=== PATIENT | female | born 1965 | race Caucasian/White ===

== ENCOUNTER 2016-09-07 08:22 | Emergency (ER) | payer MEDICAID, OTHER ==
[~2016-09-07] VITALS: Ht 149.9 cm; Wt 40.0 kg
[~2016-09-07 08:22] MED LIST: CEPH500C3 PO
[2016-09-07 08:25] VITALS: BP 166/76; PULSE 124; RESP 22; TEMP 98.1; O2SAT 95
[2016-09-07 09:27] LABS: BACTERIA, URINE RARE /hpf; BLOOD, URINE MOD (NEG); COMMENT (UR) CULT NOT INDICATED; CULTURE IF INDICATED CULT NOT INDICATED; GLUCOSE,URINE NEG (NEG); KETONE, URINE 80 mg/dL (NEG); MUCUS URINE MANY /lpf (OCC); NITRITE,URINE NEG (NEG); URINE COLOR YELLOW (YELLW/STRAW)
--- NOTE | 2016-09-07 10:00 | RADRPT ---
EXAM DATE/TIME: 09/07/2016 09:36 [facility] COMPARISON: No previous studies available for comparison. INDICATIONS : Abdominal pain. Constipation and impaction for one week. MEDICAL HISTORY : None. SURGICAL HISTORY : Tubal ligation. ENCOUNTER: Initial ACUITY: 1 week PAIN SCORE: 8/10 LOCATION: All quadrants. FINDINGS: A single erect view of the abdomen demonstrates the lower lungs to be clear. No evidence of free int raperitoneal gas. The visualized bowel loops are unremarkable. There is some stool in the colon. How ever no abnormal dilatation is seen. There is some curvature of the lumbar spine to the right. CONCLUSION: Benign abdomen. Mickey Lima MD on September 07, 2016 at 9:58 Board Certified Radiologist. This report was verified electronically.
--- NOTE | 2016-09-07 10:46 | PD ---
HPI Chief Complaint: GI Complaint Time Seen by Provider: 08:41 Travel History International Travel<30 days: No Contact w/Intl Traveler<30days: No Traveled to known affect area: No History of Present Illness HPI This is a 51-year-old female history of anxiety disorder, who presents today with complaints of not been able to have a bowel movement 1 week. Patient states that she's had constipation in the past. She states that when he gets this bad, she usually needs disimpaction. The patient denies any fevers, chills. She states that she's having difficulty urinating secondary to the feeling that she has a large amount of stool in her colon. There are no other complaints time my examination. PFSH Past Medical History Arthritis: Yes Autoimmune Disease: No Blood Disorders: No Anxiety: Yes Depression: Yes Heart Rhythm Problems: No Cancer: No Cardiovascular Problems: Yes (HEART MURMUR) High Cholesterol: No Chemotherapy: No Chest Pain: No Congestive Heart Failure: No Diabetes: No Diminished Hearing: No Endocrine: No Gastrointestinal Disorders: Yes (MAY HAVE IBS. UNSURE.) GERD: No Glaucoma: No Genitourinary: No Headaches: Yes Hepatitis: No Hiatal Hernia: No Hypertension: No Immune Disorder: No Kidney Stones: No Musculoskeletal: Yes (INJURED ENTIRE R SIDE IN A FALL AT THE [employer] YEAR AND HALF AGO) Neurologic: No Psychiatric: Yes Reproductive: Yes Respiratory: No Migraines: No Myocardial Infarction: No Radiation Therapy: No Renal Failure: No Sickle Cell Disease: No Sleep Apnea: No Thyroid Disease: No Ulcer: No Influenza Vaccination: Yes ?: Not Menopausal: Yes : 9 Para: 2 Miscarriage: 1 : 5 Ectopic : No Ovarian Cysts: No Dilation and Curettage (D&C): Yes Tubal Ligation: Yes Past Surgical History Abdominal Surgery: No AICD: No Appendectomy: No Arteriovenous Shunt: No Cardiac Surgery: No Cholecystectomy: No Ear Surgery: No Endocrine Surgery: No Eye Surgery: No Genitourinary Surgery: No Gynecologic Surgery: Yes (CERVICAL ABLATION, D & C) Hysterectomy: No Insulin Pump: No Joint Replacement: No Oral Surgery: No Pacemaker: No Thoracic Surgery: No Other Surgery: Yes Social History Alcohol Use: No Tobacco Use: Yes (1 PPD) Substance Use: Yes (OCCASIONAL MARIJUANA) Allergies-Medications (Allergen,Severity, Reaction): Coded Allergies: Cleocin (Verified Allergy, Severe, 2/24/17) Flagyl (Verified Allergy, Severe, NAUSEA/VOMITING, 09/07/16) Tetracycline (Verified Allergy, Severe, 09/07/16) Tramadol (Verified Allergy, Severe, CONFUSED, 09/07/16) Reported Meds & Prescriptions Reported Meds & Active Scripts Active No Active Prescriptions or Reported Medications Review of Systems Except as stated in HPI: all other systems reviewed are Neg General / Constitutional: No: Fever, Chills HENT: No: Headaches, Lightheadedness Cardiovascular: No: Chest Pain or Discomfort, Palpitations Respiratory: No: Cough, Shortness of Breath Gastrointestinal: Positive: Abdominal Pain (abdominal discomfort), Constipation ( secondary to constipation), No: Nausea, Vomiting Genitourinary: Positive: Other (difficulty urinating secondary to the constipation) Neurologic: No: Weakness, Dizziness Psychiatric: Positive: Anxiety (history of) Physical Exam Narrative GENERAL: Well-nourished, well-developed patient, in no acute respiratory distress. SKIN: Warm and dry. HEAD: Normocephalic/atraumatic. EYES: No injection or drainage. NECK: Supple, trachea midline. CARDIOVASCULAR: Irregularly irregular with a rate in the low 100s. Rate was 101 RESPIRATORY: Breath sounds equal bilaterally. No accessory muscle use. GASTROINTESTINAL: Abdomen soft, thin. The patient had subjective cramping in her lower abdominal area with the urge to have a bowel movement. MUSCULOSKELETAL: No cyanosis, or edema. NEUROLOGICAL: Awake and alert. Cranial nerves II through XII intact. Motor grossly within normal limits. Five out of 5 muscle strength in all muscle groups. Normal speech. Data Data Last Documented VS Vital Signs Date Time Temp Pulse Resp B/P Pulse Ox O2 Delivery O2 Flow Rate FiO2 09/07/16 08:25 98.1 124 22 166/76 95 Orders Electrocardiogram (09/07/16 ) Urinalysis - C+S If Indicated (09/07/16 08:41) Abdomen, Upright Only (09/07/16 08:41) Complete Blood Count With Diff (09/07/16 10:43) Basic Metabolic Panel (Bmp) (09/07/16 10:43) Midazolam Inj (Versed Inj) (09/07/16 12:15) Fleets Enema PRN (09/07/16 12:14) Potassium Cl 40 Meq/30 Ml Liq (Kcl 40 Me (09/07/16 15:00) Labs Laboratory Tests Test 09/07/16 09/07/16 09:05 10:30 Urine Color YELLOW Urine Turbidity HAZY Urine pH 6.0 Urine Specific [place] 1.013 Urine Protein 100 mg/dL Urine Glucose (UA) NEG mg/dL Urine Ketones 80 mg/dL Urine Occult Blood MOD Urine Nitrite NEG Urine Bilirubin NEG Urine Urobilinogen 2.0 MG/DL Urine Leukocyte Esterase NEG Urine RBC 42 /hpf Urine WBC 4 /hpf Urine Bacteria RARE /hpf Urine Mucus MANY /lpf Microscopic Urinalysis Comment CULT NOT INDICATED White Blood Count 9.6 TH/MM3 Red Blood Count 4.79 MIL/MM3 Hemoglobin 14.0 GM/DL Hematocrit 40.1 % Mean Corpuscular Volume 83.6 FL Mean Corpuscular Hemoglobin 29.1 PG Mean Corpuscular Hemoglobin 34.8 % Concent Red Cell Distribution Width 13.8 % Platelet Count 359 TH/MM3 Mean Platelet Volume 8.0 FL Neutrophils (%) (Auto) 86.0 % Lymphocytes (%) (Auto) 7.1 % Monocytes (%) (Auto) 6.3 % Eosinophils (%) (Auto) 0.1 % Basophils (%) (Auto) 0.5 % Neutrophils # (Auto) 8.3 TH/MM3 Lymphocytes # (Auto) 0.7 TH/MM3 Monocytes # (Auto) 0.6 TH/MM3 Eosinophils # (Auto) 0.0 TH/MM3 Basophils # (Auto) 0.0 TH/MM3 CBC Comment DIFF FINAL Differential Comment Sodium Level 135 MEQ/L Potassium Level 2.9 MEQ/L Chloride Level 97 MEQ/L Carbon Dioxide Level 26.8 MEQ/L Anion Gap 11 MEQ/L Blood Urea Nitrogen 11 MG/DL Creatinine 0.44 MG/DL Estimat Glomerular Filtration 151 ML/MIN Rate Random Glucose 146 MG/DL Calcium Level 8.6 MG/DL [facility] Medical Decision Making Medical Screen Exam Complete: Yes Emergency Medical Condition: Yes Interpretation(s) With nurse Mcmanus at the bedside, the patient was digitally disimpacted. A large amount of hard stool was digitally removed from the patient's rectum. She tolerated the procedure well. Differential Diagnosis Bowel obstruction versus constipation versus dehydration Narrative Course 51-year-old female history chronic constipation, presents with complaints of constipation. The patient states that she needs to be disimpacted. The patient did not have evidence of a bowel obstruction. This physician did disimpact her partially. We also gave her a fleets enema which was successful for getting her bowels moving. She states she feels much improved. She has been given I V fluids as her urine was dark. Her potassium was also noted to be 2.9. She's been given 40 mEq of potassium times one dose. She states she always has low potassium. I will write her for 10 mEq daily for 10 days. She is instructed also increase her potassium rich diet including warm juice, bananas and green leafy vegetables. She is instructed to follow up with her primary care physician. Also instructed that she needs to stop smoking cigarettes. Diagnosis Primary Impression: severe constipation Additional Impressions: Dehydration HYPOKALEMIA Additional Instructions: Increase potassium rich foods including orange juice, bananas, green leafy few vegetables. Increase her water intake. Take 10 mEq of potassium daily for 10 days. Follow up with primary care physician within one to 2 weeks. Scripts Potassium Chloride ER (K-Tab)10 Meq Tab10 Meq PO DAILY #10 TAB Ref 0 Prov:Forest Yarbrough MD 09/07/16 Disposition: 01 DISCHARGE HOME Condition: Stable Forest Yarbrough MD Sep 07, 2016 10:46
[2016-09-07 11:02] LABS: AUTOMATED NEUTROPHIL # 8.3 TH/MM3 (1.8-7.7); BASOPHIL % 0.5 % (0.0-2.0); EOSINOPHIL % 0.1 % (0.0-4.0); HEMATOCRIT 40.1 % (35.0-46.0); HEMO FLAGS DIFF FINAL; LYMPH % 7.1 % (9.0-44.0); LYMPHOCYTE # 0.7 TH/MM3 (1.0-4.8); MEAN CELL VOLUME 83.6 FL (80.0-100.0); MEAN CORPUSCULAR HEMOGLOBIN 29.1 PG (27.0-34.0); MEAN CORPUSCULAR HGB CONC 34.8 % (32.0-36.0); MONO % 6.3 % (0.0-8.0); PLATELET COUNT 359 TH/MM3 (150-450); RED BLOOD COUNT 4.79 MIL/MM3 (4.00-5.30); RED CELL DISTRIBUTION WIDTH 13.8 % (11.6-17.2); WHITE BLOOD COUNT 9.6 TH/MM3 (4.0-11.0)
[2016-09-07 12:07] LABS: BICARBONATE 26.8 MEQ/L (21.0-32.0)
[2016-09-07 12:13] LABS: POTASSIUM 2.9 MEQ/L (3.5-5.1)
[2016-09-07] MEDS ORDERED: MIDAZOLAM HCL 2 MG/2 ML VIAL IV PUSH ONE (12:15)
[2016-09-07] MEDS ORDERED: POTASSIUM CL 40 MEQ/30 ML LIQ UDC PO ONE (15:00)
[2016-09-07] MEDS ORDERED: K-TA10TA PO (15:08)
[2016-09-07 16:31] VITALS: BP 116/60
--- NOTE | 2016-09-07 17:15 | EKG ---
Date Performed: 09/07/2016 Time Performed: 08:47:42 PTAGE: 51 years EKG: SINUS TACHYCARDIA POSSIBLE RIGHT ATRIAL ENLARGEMENT MODERATE ST DEPRESSION ABNORMAL ECG NO PREVIOUS TRACING DOCTOR: Nila Menezes Interpretating Date/Time 09/07/2016 17:14:25
== END 2016-09-07 17:21 | disposition home or self-care (01) ==
LOC: NEPE 08:22
DX: K56.41 Fecal impaction (principal); E86.0 Dehydration; E87.6 Hypokalemia; F17.210 Nicotine dependence, cigarettes, uncomplicated
CPT/HCPCS: 74000; 80048; 81001; 85025; 93005; 96374; 99284; J2250

== ENCOUNTER 2017-03-04 15:40 | Emergency (ER) | payer SELFPAY ==
[~2017-03-04] VITALS: Ht 149.9 cm; Wt 40.0 kg
[~2017-03-04 15:40] MED LIST changes: -CEPH500C3 PO; +K-TA10TA PO
[2017-03-04] MEDS ORDERED: IOHEXOL 350 MG/ML 10 ML VIAL (for RAD DIAG) IVCONTRAST ONE (15:41)
[2017-03-04 15:42] VITALS: BP 184/83; PULSE 99; RESP 26; TEMP 98.8; O2SAT 98
--- NOTE | 2017-03-04 17:15 | PD ---
Physical Exam Date Seen by Provider: Mar 04, 2017 Time Seen by Provider: 17:13 Narrative 51 y/o female here with Abd Pain and cramping for the past 6 days. + Diarrhea. + Nausea, No vomiting. Labs ordered. Data Data Last Documented VS Vital Signs Date Time Temp Pulse Resp B/P (MAP) Pulse Ox O2 Delivery O2 Flow Rate FiO2 03/04/17 15:42 98.8 99 26 184/83 (116) 98 Room Air MDM Medical Record Reviewed: Yes Supervised Visit with MUNIR: Yes Condition: Stable Tai Barros Mar 04, 2017 17:15
[2017-03-04 17:44] LABS: BLOOD, URINE SMALL (NEG); COMMENT (UR) CULT NOT INDICATED; CULTURE IF INDICATED CULT NOT INDICATED; GLUCOSE,URINE NEG (NEG); KETONE, URINE NEG (NEG); MUCUS URINE FEW /lpf (OCC); NITRITE,URINE NEG (NEG); PH, URINE 6.5 (5.0-8.5); SQUAMOUS EPITHELIAL CELL URINE 1 /hpf (0-5); URINE COLOR YELLOW (YELLW/STRAW)
[2017-03-04 17:56] LABS: AUTOMATED NEUTROPHIL # 3.4 TH/MM3 (1.8-7.7); BASOPHIL % 0.5 % (0.0-2.0); EOSINOPHIL # 0.1 TH/MM3 (0-0.4); HEMATOCRIT 43.9 % (35.0-46.0); HEMO FLAGS DIFF FINAL; LYMPH % 43.2 % (9.0-44.0); MEAN CELL VOLUME 86.7 FL (80.0-100.0); MEAN CORPUSCULAR HEMOGLOBIN 29.5 PG (27.0-34.0); MONO % 6.6 % (0.0-8.0); NEUT % 48.7 % (16.0-70.0); PLATELET COUNT 296 TH/MM3 (150-450); RED BLOOD COUNT 5.06 MIL/MM3 (4.00-5.30); RED CELL DISTRIBUTION WIDTH 13.4 % (11.6-17.2); WHITE BLOOD COUNT 6.9 TH/MM3 (4.0-11.0)
[2017-03-04 18:01] LABS: APTT (PATIENT) 26.9 SEC (24.3-30.1); PROTHROMBIN TIME - PATIENT 10.7 SEC (9.8-11.6)
[2017-03-04 18:06] LABS: ALT (GPT) 19 U/L (10-53); ANION GAP 7 MEQ/L (5-15); AST (GOT) 17 U/L (15-37); BICARBONATE 30.3 MEQ/L (21.0-32.0); BLOOD UREA NITROGEN 12 MG/DL (7-18); CHLORIDE 102 MEQ/L (98-107); GLOMERULAR FILTRATION RATE 196 ML/MIN (>89); POTASSIUM 3.4 MEQ/L (3.5-5.1); SODIUM (NA) 139 MEQ/L (136-145)
[2017-03-04 18:08] LABS: ALKALINE PHOSPHATASE 118 U/L (45-117); TOTAL BILIRUBIN ADULT 0.5 MG/DL (0.2-1.0)
[2017-03-04] MEDS ORDERED: SODIUM CHLOR 0.9% 1000 ML INJ 1,000 ML IV SCH (19:20)
--- NOTE | 2017-03-04 19:26 | PD ---
HPI Chief Complaint: Abdominal Pain Time Seen by Provider: 18:52 Travel History International Travel<30 days: No Contact w/Intl Traveler<30days: No Traveled to known affect area: No History of Present Illness HPI Patient is a 51-year-old female presenting to emergency evaluation of abdominal pain and cramping. Patient states it's been ongoing for approximately 6 days, accompanied by diarrhea and nausea but no vomiting. Patient states that she's been burping and as a throbbing pain in her stomach. She states the pain was in her right upper quadrant and then moved to her left upper quadrant and then goes back again. Patient states the pain takes her breath away sometimes. She has had pain similar to this in the past however at this time is more severe. She currently rates her pain a 9 out of 10, the pain is exacerbated with food, is not relieved by anything. She denies any significant past medical history, she endorses daily tobacco use but denies alcohol use. She further denies any fever, chills, chest pain, headache, neck pain. PFSH Past Medical History Medical History: Denies Significant Hx Arthritis: Yes Autoimmune Disease: No Blood Disorders: No Anxiety: Yes Depression: Yes Heart Rhythm Problems: No Cancer: No High Cholesterol: No Chemotherapy: No Chest Pain: No Congestive Heart Failure: No Diabetes: No Diminished Hearing: No Endocrine: No Gastrointestinal Disorders: Yes GERD: No Glaucoma: No Genitourinary: No Headaches: Yes Hepatitis: No Hiatal Hernia: No Hypertension: No Immune Disorder: No Kidney Stones: No Musculoskeletal: Yes (INJURED ENTIRE R SIDE IN A FALL AT THE [employer] [facility] YEAR AND HALF AGO) Neurologic: No Psychiatric: Yes Reproductive: Yes Respiratory: No Migraines: No Myocardial Infarction: No Radiation Therapy: No Renal Failure: No Sickle Cell Disease: No Sleep Apnea: No Thyroid Disease: No Ulcer: No Tetanus Vaccination: < 5 Years Influenza Vaccination: No ?: Not LMP: Menopausal: Yes : 9 Para: 3 Miscarriage: 1 : 5 Ectopic : No Ovarian Cysts: No Dilation and Curettage (D&C): Yes Tubal Ligation: Yes Past Surgical History Abdominal Surgery: No AICD: No Appendectomy: No Arteriovenous Shunt: No Cardiac Surgery: No Cholecystectomy: No Ear Surgery: No Endocrine Surgery: No Eye Surgery: No Genitourinary Surgery: No Gynecologic Surgery: Yes (December 2007 Ablation) Hysterectomy: No Insulin Pump: No Joint Replacement: No Oral Surgery: No Pacemaker: No Thoracic Surgery: No Other Surgery: Yes Social History Alcohol Use: No Tobacco Use: Yes (one pack) Substance Use: Yes (pot) Allergies-Medications (Allergen,Severity, Reaction): Coded Allergies: clindamycin (Unverified Allergy, Severe, 03/04/17) doxycycline (Unverified Allergy, Severe, 03/04/17) metronidazole (Unverified Allergy, Severe, NAUSEA/VOMITING, 03/04/17) minocycline (Unverified Allergy, Severe, 03/04/17) tigecycline (Unverified Allergy, Severe, 03/04/17) tramadol (Unverified Allergy, Severe, CONFUSED, 03/04/17) Reported Meds & Prescriptions Reported Meds & Active Scripts Active Review of Systems Except as stated in HPI: all other systems reviewed are Neg General / Constitutional: No: Fever, Chills Eyes: No: Blurred Vision HENT: No: Headaches Cardiovascular: No: Chest Pain or Discomfort Respiratory: No: Shortness of Breath Gastrointestinal: Positive: Nausea, Diarrhea, Abdominal Pain, Indigestion, No: Vomiting Genitourinary: No: Dysuria Musculoskeletal: No: Myalgias Neurologic: No: Weakness Physical Exam Narrative GENERAL: Thin, well-developed, alert female. Resting in no acute distress. SKIN: Warm and dry. HEAD: Atraumatic. Normocephalic. EYES: Pupils equal and round. No scleral icterus. No injection or drainage. ENT: No nasal bleeding or discharge. Mucous membranes pink and moist. NECK: Trachea midline. No JVD. CARDIOVASCULAR: Regular rate and rhythm. RESPIRATORY: No accessory muscle use. Clear to auscultation. Breath sounds equal bilaterally. GASTROINTESTINAL: Abdomen soft, mild tenderness epigastric region, nondistended. Hepatic and splenic margins not palpable. Positive bowel sounds, no rebound, no guarding. MUSCULOSKELETAL: Extremities without clubbing, cyanosis, or edema. No obvious deformities. NEUROLOGICAL: Awake and alert. No obvious cranial nerve deficits. Motor grossly within normal limits. Five out of 5 muscle strength in the arms and legs. Normal speech. PSYCHIATRIC: Appropriate mood and affect; insight and judgment normal. Data Data Last Documented VS Vital Signs Date Time Temp Pulse Resp B/P (MAP) Pulse Ox O2 Delivery O2 Flow Rate FiO2 03/04/17 19:51 86 20 154/71 (98) 98 03/04/17 15:42 98.8 Room Air Orders Orders Complete Blood Count With Diff (03/04/17 17:15) Comprehensive Metabolic Panel (03/04/17 17:15) Lipase (03/04/17 17:15) Prothrombin Time / Inr (Pt) (03/04/17 17:15) Act Partial Throm Time (Ptt) (03/04/17 17:15) Urinalysis - C+S If Indicated (03/04/17 17:15) Ct Abd/Pel W Iv Contrast(Rout) (03/04/17 19:20) Iv Access Insert/Monitor (03/04/17 19:20) Ecg Monitoring (03/04/17 19:20) Oximetry (03/04/17 19:20) NPO (03/04/17 19:20) Ondansetron Inj (Zofran Inj) (03/04/17 19:30) Sodium Chlor 0.9% 1000 Ml Inj (Ns 1000 M (03/04/17 19:20) Sodium Chloride 0.9% Flush (Ns Flush) (03/04/17 19:30) Famotidine Inj (Pepcid Inj) (03/04/17 19:30) Iohexol 350 Inj (Omnipaque 350 Inj) (03/04/17 15:41) Labs Laboratory Tests Test 03/04/17 17:23 03/04/17 17:30 White Blood Count 6.9 TH/MM3 Red Blood Count 5.06 MIL/MM3 Hemoglobin 14.9 GM/DL Hematocrit 43.9 % Mean Corpuscular Volume 86.7 FL Mean Corpuscular Hemoglobin 29.5 PG Mean Corpuscular Hemoglobin Concent 34.0 % Red Cell Distribution Width 13.4 % Platelet Count 296 TH/MM3 Mean Platelet Volume 7.6 FL Neutrophils (%) (Auto) 48.7 % Lymphocytes (%) (Auto) 43.2 % Monocytes (%) (Auto) 6.6 % Eosinophils (%) (Auto) 1.0 % Basophils (%) (Auto) 0.5 % Neutrophils # (Auto) 3.4 TH/MM3 Lymphocytes # (Auto) 3.0 TH/MM3 Monocytes # (Auto) 0.5 TH/MM3 Eosinophils # (Auto) 0.1 TH/MM3 Basophils # (Auto) 0.0 TH/MM3 CBC Comment DIFF FINAL Differential Comment Prothrombin Time 10.7 SEC Prothromb Time International Ratio 1.0 RATIO Activated Partial Thromboplast Time 26.9 SEC Blood Urea Nitrogen 12 MG/DL Creatinine 0.35 MG/DL Random Glucose 77 MG/DL Total Protein 8.0 GM/DL Albumin 4.2 GM/DL Calcium Level 9.2 MG/DL Alkaline Phosphatase 118 U/L Aspartate Amino Transf (AST/SGOT) 17 U/L Alanine Aminotransferase (ALT/SGPT) 19 U/L Total Bilirubin 0.5 MG/DL Sodium Level 139 MEQ/L Potassium Level 3.4 MEQ/L Chloride Level 102 MEQ/L Carbon Dioxide Level 30.3 MEQ/L Anion Gap 7 MEQ/L Estimat Glomerular Filtration Rate 196 ML/MIN Lipase 76 U/L Urine Color YELLOW Urine Turbidity CLEAR Urine pH 6.5 Urine Specific [place] 1.014 Urine Protein 30 mg/dL Urine Glucose (UA) NEG mg/dL Urine Ketones NEG mg/dL Urine Occult Blood SMALL Urine Nitrite NEG Urine Bilirubin NEG Urine Urobilinogen LESS THAN 2.0 MG/DL Urine Leukocyte Esterase NEG Urine RBC 5 /hpf Urine WBC LESS THAN 1 /hpf Urine Squamous Epithelial Cells 1 /hpf Urine Amorphous Sediment RARE Urine Mucus FEW /lpf Microscopic Urinalysis Comment CULT NOT INDICATED MDM Medical Decision Making Medical Screen Exam Complete: Yes Emergency Medical Condition: Yes Medical Record Reviewed: Yes Interpretation(s) Vital Signs Date Time Temp Pulse Resp B/P (MAP) Pulse Ox O2 Delivery O2 Flow Rate FiO2 03/04/17 19:14 20 03/04/17 15:42 98.8 99 26 184/83 (116) 98 Room Air Differential Diagnosis Gastritis versus pancreatitis versus cholecystitis versus gastroenteritis versus other Narrative Course Patient is a 51-year-old female presenting for evaluation of upper abdominal pain that has been ongoing for 6 days. Patient's vital signs are stable, abdominal exam with mild tenderness in the epigastric region. Patient had labs performed in triage, patient's vital signs are stable, imaging ordered and pending. CBC is unremarkable CMP potassium 3.4, lipase 76 Urinalysis with 5 red blood cells, small amount of blood. Reflex culture is not indicated. Patient denies any complaints of dysuria CT scan abdomen and pelvis was read by the radiologist and shows no acute disease, no significant changes occurred. Patient was given Zofran, IV fluids, famotidine. She was also ordered a dose of Carafate. Symptoms appear more consistent with gastritis, patient will be discharged home with medications. She is encouraged to follow-up with her primary doctor. She was given strict return precautions. Patient verbalized understanding of these instructions. Patient is stable for discharge. Diagnosis Primary Impression: Gastritis Qualified Codes: K29.70 - Gastritis, unspecified, without bleeding Referrals: [facility] Primary Care Physician Patient Instructions: Diet for Stomach Ulcers and Gastritis (ED), Gastritis (ED ), General Instructions Additional Instructions: Follow-up with your primary doctor Maintain a bland, low residue diet, increase as tolerated Take medications as directed Return to emergency department for any new or worsening symptoms Med/Other Pt SpecificInfo: Prescription(s) given Scripts Pantoprazole (Pantoprazole) 40 Mg Tab 40 MG PO DAILY for Reflux, #30 TAB 0 Refills Prov: Parisa Villagomez 03/04/17 Sucralfate Liq (Carafate Liq) 1 Gm/10 Ml Susp 1 GM PO QID for Duodenal ulcer for 10 Days, #1200 ML 0 Refills on empty stomach Prov: Parisa Villagomez 03/04/17 Disposition: 01 DISCHARGE HOME Condition: Stable Parisa Villagomez Mar 04, 2017 19:26
[2017-03-04] MEDS ORDERED: ONDANSETRON HCL 4 MG/2 ML VIAL IVP ONE (19:30)
[2017-03-04] MEDS ORDERED: SODIUM CHLORIDE 0.9% FLUSH 10 ML FLUSH IV FLUSH PRN (19:30)
[2017-03-04] MEDS ORDERED: FAMOTIDINE 20 MG/2 ML VIAL IV PUSH ONE (19:30)
[2017-03-04 19:51] VITALS: BP 154/71; PULSE 86; RESP 20; O2SAT 98
--- NOTE | 2017-03-04 20:30 | RADRPT ---
EXAM DATE/TIME: 03/04/2017 20:08 [facility] COMPARISON: CT ABDOMEN & PELVIS W CONTRAST, December 16, 2014, 20:24. INDICATIONS : Medial abdominal pain with nausea and diarrhea x1 week. IV CONTRAST: 95 cc Omnipaque 350 (iohexol) IV ORAL CONTRAST: No oral contrast ingested. RADIATION DOSE: 4.49 CTDIvol (mGy) MEDICAL HISTORY : Cardiovascular disease. SURGICAL HISTORY : Tubal ligation. ENCOUNTER: Initial ACUITY: 1 week PAIN SCALE: 9/10 LOCATION: medial abdomen TECHNIQUE: Volumetric scanning of the abdomen and pelvis was performed. Using automated exposure control and ad justment of the mA and/or kV according to patient size, radiation dose was kept as low as reasonably achievable to obtain optimal diagnostic quality images. DICOM format image data is available electro nically for review and comparison. FINDINGS: LOWER LUNGS: The visualized lower lungs are clear. LIVER: Homogeneous density without lesion. There is no dilation of the biliary tree. No calcified gallston es. SPLEEN: Normal size without lesion. PANCREAS: Within normal limits. KIDNEYS: Normal in size and shape. There is no mass, stone or hydronephrosis. ADRENAL GLANDS: Within normal limits. VASCULAR: There is no aortic aneurysm. BOWEL/MESENTERY: The stomach, small bowel, and colon demonstrate no acute abnormality. There is no free intraperitone al air or fluid. ABDOMINAL WALL: Within normal limits. RETROPERITONEUM: There is no lymphadenopathy. BLADDER: No wall thickening or mass. REPRODUCTIVE: Within normal limits. INGUINAL: There is no lymphadenopathy or hernia. MUSCULOSKELETAL: Within normal limits for patient age. CONCLUSION: No acute disease. No significant change has occurred. Jesse Wren MD on March 04, 2017 at 20:26 Board Certified Radiologist. This report was verified electronically.
[2017-03-04] MEDS ORDERED: SUCRALFATE 1 GM/10 ML CUP PO ONE (20:45)
[2017-03-04] MEDS ORDERED: PANT40TA3 PO (20:46)
[2017-03-04] MEDS ORDERED: CARA1SUS3 PO (20:46)
[2017-03-04] MEDS ORDERED: POTASSIUM CHLORIDE 20 MEQ CONTROLLED RELEASE TAB PO ONE (21:00)
[2017-03-04 21:17] VITALS: BP 136/66
== END 2017-03-04 22:15 | disposition home or self-care (01) ==
LOC: NEPD 15:40
DX: K29.70 Gastritis, unspecified, without bleeding (principal); F17.200 Nicotine dependence, unspecified, uncomplicated
CPT/HCPCS: 74177; 80053; 81001; 83690; 85025; 85610; 85730; 96361; 96374; 99285; J2405; J7030; Q9967

== ENCOUNTER 2018-01-07 12:51 | Emergency (ER) | payer SELFPAY ==
[~2018-01-07] VITALS: Ht 152.4 cm; Wt 40.0 kg
[~2018-01-07 12:51] MED LIST changes: +CARA1SUS3 PO; -K-TA10TA PO; +PANT40TA3 PO
[2018-01-07 12:54] VITALS: BP 159/91; PULSE 88; RESP 16; TEMP 98.7; O2SAT 98
[2018-01-07] MEDS ORDERED: SODIUM CHLORIDE 0.9% FLUSH 10 ML FLUSH IV FLUSH PRN (13:00)
[2018-01-07] MEDS ORDERED: MORPHINE SULFATE 4 MG/ML INJ IV PUSH ONE ×2 (13:00→14:45)
[2018-01-07 13:03] VITALS: O2SAT 98
[2018-01-07 13:10] LABS: BASOPHIL % 0.3 % (0.0-2.0); EOSINOPHIL % 0.7 % (0.0-4.0); HEMATOCRIT 45.1 % (35.0-46.0); HEMOGLOBIN 15.4 GM/DL (11.6-15.3); LYMPH % 30.7 % (9.0-44.0); LYMPHOCYTE # 1.5 TH/MM3 (1.0-4.8); MEAN CELL VOLUME 85.5 FL (80.0-100.0); MEAN CORPUSCULAR HEMOGLOBIN 29.2 PG (27.0-34.0); MEAN CORPUSCULAR HGB CONC 34.2 % (32.0-36.0); MEAN PLATELET VOLUME 7.5 FL (7.0-11.0); MONO % 5.2 % (0.0-8.0); MONOCYTE # 0.3 TH/MM3 (0-0.9); NEUT % 63.1 % (16.0-70.0); PLATELET COUNT 293 TH/MM3 (150-450); RED BLOOD COUNT 5.28 MIL/MM3 (4.00-5.30); RED CELL DISTRIBUTION WIDTH 13.2 % (11.6-17.2); WHITE BLOOD COUNT 4.8 TH/MM3 (4.0-11.0)
[2018-01-07 13:21] LABS: CHLORIDE 102 MEQ/L (98-107); SODIUM (NA) 137 MEQ/L (136-145)
[2018-01-07 13:24] LABS: CALCIUM 9.2 MG/DL (8.5-10.1)
--- NOTE | 2018-01-07 13:24 | RADRPT ---
EXAM DATE: 01/07/2018 1:20 PM EDT AGE/SEX: 52 years / Female INDICATIONS: Upper left quadrant pain radiating to back just under diaphragm. Short of breath. CLINICAL DATA: This is the patient's initial encounter. Patient reports that signs and symptoms have been present for 1 day and indicates a pain score of 10/10. MEDICAL/SURGICAL HISTORY: Chronic obstructive pulmonary disease. Arthritis. Smoker. Tubal lig ation. COMPARISON: [facility] – [place], CHEST SINGLE AP, 03/13/2012. . FINDINGS: Lungs are hyperexpanded with diffuse interstitial prominence. No new focal pleural or parenchymal opa cities. Cardiomediastinal contours are within normal limits. Bony thorax is intact. CONCLUSION: 1. No acute abnormality or significant interval change. Electronically signed by: Praneeth Kurtz MD 01/07/2018 1:23 PM EDT
[2018-01-07 13:25] LABS: ALBUMIN 3.8 GM/DL (3.4-5.0); BLOOD UREA NITROGEN 8 MG/DL (7-18); GLUCOSE,RANDOM 121 MG/DL (74-106)
[2018-01-07 13:27] LABS: ALT (GPT) 21 U/L (10-53); AST (GOT) 16 U/L (15-37); CREATININE 0.37 MG/DL (0.50-1.00); GLOMERULAR FILTRATION RATE 183 ML/MIN (>89)
--- NOTE | 2018-01-07 13:27 | PD ---
HPI Chief Complaint: Abdominal Pain Time Seen by Provider: 12:55 Travel History International Travel<30 days: No Contact w/Intl Traveler<30days: No Traveled to known affect area: No History of Present Illness HPI This is a 52-year-old female who presents to the emergency department with abdominal pain, severe, constant that started in the middle the night and has worsened throughout the morning, in the middle of her abdomen right neck with some associated nausea but no she denies any fevers or chills. She has never had pain like this before. She has had no abdominal surgeries but did have a uterine ablation several years ago. She does have a history of chronic back pain for which she takes Lortab intermittently. She denies alcohol use but does smoke marijuana daily. PFSH Past Medical History Arthritis: Yes Autoimmune Disease: No Blood Disorders: No Anxiety: Yes Depression: Yes Heart Rhythm Problems: No Cancer: No Cardiovascular Problems: Yes (HEART MURMUR) High Cholesterol: No Chemotherapy: No Chest Pain: No Congestive Heart Failure: No Diabetes: No Diminished Hearing: No Endocrine: No Gastrointestinal Disorders: Yes GERD: No Glaucoma: No Genitourinary: No Headaches: Yes Hepatitis: No Hiatal Hernia: No Hypertension: No Immune Disorder: No Kidney Stones: No Musculoskeletal: Yes (INJURED ENTIRE R SIDE IN A FALL AT THE [employer] YEAR AND HALF AGO) Neurologic: No Psychiatric: Yes Reproductive: Yes Respiratory: Yes (COPD) Migraines: No Myocardial Infarction: No Radiation Therapy: No Renal Failure: No Sickle Cell Disease: No Sleep Apnea: No Thyroid Disease: No Ulcer: No Tetanus Vaccination: > 5 Years Influenza Vaccination: No ?: Not Menopausal: Yes : 9 Para: 3 Miscarriage: 1 : 5 Ectopic : No Ovarian Cysts: No Dilation and Curettage (D&C): Yes Tubal Ligation: Yes Past Surgical History Abdominal Surgery: No AICD: No Appendectomy: No Arteriovenous Shunt: No Cardiac Surgery: No Cholecystectomy: No Ear Surgery: No Endocrine Surgery: No Eye Surgery: No Genitourinary Surgery: No Gynecologic Surgery: Yes (December 2007 Ablation) Hysterectomy: No Insulin Pump: No Joint Replacement: No Oral Surgery: No Pacemaker: No Thoracic Surgery: No Other Surgery: Yes Social History Alcohol Use: No Tobacco Use: Yes (one pack) Substance Use: Yes (pot) Allergies-Medications (Allergen,Severity, Reaction): Coded Allergies: clindamycin (Unverified Allergy, Severe, 01/07/18) doxycycline (Unverified Allergy, Severe, 01/07/18) metronidazole (Unverified Allergy, Severe, NAUSEA/VOMITING, 01/07/18) minocycline (Unverified Allergy, Severe, 01/07/18) tigecycline (Unverified Allergy, Severe, 01/07/18) tramadol (Unverified Allergy, Severe, CONFUSED, 01/07/18) Reported Meds & Prescriptions Reported Meds & Active Scripts Active No Active Prescriptions or Reported Medications Review of Systems Except as stated in HPI: all other systems reviewed are Neg Physical Exam Narrative GENERAL: Thin, uncomfortable appearing SKIN: Focused skin assessment warm and dry. HEAD: Atraumatic. Normocephalic. EYES: Pupils equal and round. No injection or drainage. ENT: Moist mucous membranes NECK: Trachea midline. CARDIOVASCULAR: Regular rate and rhythm. No murmur appreciated. RESPIRATORY: Clear to auscultation. Breath sounds equal bilaterally. GASTROINTESTINAL: Abdomen tender to palpation worse in the upper abdomen with guarding, pulsatile mass appreciated MUSCULOSKELETAL: No obvious deformities. NEUROLOGICAL: Awake and alert. No obvious cranial nerve deficits. Moving all extremities. PSYCHIATRIC: Appropriate mood and affect; insight and judgment normal. Data Data Last Documented VS Vital Signs Date Time Temp Pulse Resp B/P (MAP) Pulse Ox O2 Delivery O2 Flow Rate FiO2 01/07/18 13:03 98 Room Air 01/07/18 12:54 98.7 88 16 159/91 (113) Orders Orders Complete Blood Count With Diff (01/07/18 13:00) Comprehensive Metabolic Panel (01/07/18 13:00) Lipase (01/07/18 13:00) Urinalysis - C+S If Indicated (01/07/18 13:00) Iv Access Insert/Monitor (01/07/18 13:00) Ecg Monitoring (01/07/18 13:00) Oximetry (01/07/18 13:00) Morphine Inj (Morphine Inj) (01/07/18 13:00) Sodium Chloride 0.9% Flush (Ns Flush) (01/07/18 13:00) Chest, Single Ap (01/07/18 13:00) Ed Poc Ultrasound (01/07/18 ) Ct Abd/Pel W Iv Contrast(Rout) (01/07/18 ) Lactic Acid (01/07/18 13:23) Iohexol 350 Inj (Omnipaque 350 Inj) (01/07/18 13:46) Al-Mag Hy-Si 40-40-4 Mg/Ml Liq (Mag-Al P (01/07/18 14:45) Lidocaine 2% Viscous (Xylocaine 2% Visco (01/07/18 14:45) Tlbsx-Armfyp-Fsxute-Pb Liq ( Liq (01/07/18 14:45) Morphine Inj (Morphine Inj) (01/07/18 14:45) Sodium Chlor 0.9% 1000 Ml Inj (Ns 1000 M (01/07/18 14:45) Labs Laboratory Tests Test 01/07/18 13:06 01/07/18 13:30 01/07/18 14:40 White Blood Count 4.8 TH/MM3 Red Blood Count 5.28 MIL/MM3 Hemoglobin 15.4 GM/DL Hematocrit 45.1 % Mean Corpuscular Volume 85.5 FL Mean Corpuscular Hemoglobin 29.2 PG Mean Corpuscular Hemoglobin Concent 34.2 % Red Cell Distribution Width 13.2 % Platelet Count 293 TH/MM3 Mean Platelet Volume 7.5 FL Neutrophils (%) (Auto) 63.1 % Lymphocytes (%) (Auto) 30.7 % Monocytes (%) (Auto) 5.2 % Eosinophils (%) (Auto) 0.7 % Basophils (%) (Auto) 0.3 % Neutrophils # (Auto) 3.0 TH/MM3 Lymphocytes # (Auto) 1.5 TH/MM3 Monocytes # (Auto) 0.3 TH/MM3 Eosinophils # (Auto) 0.0 TH/MM3 Basophils # (Auto) 0.0 TH/MM3 CBC Comment DIFF FINAL Differential Comment Blood Urea Nitrogen 8 MG/DL Creatinine 0.37 MG/DL Random Glucose 121 MG/DL Total Protein 7.9 GM/DL Albumin 3.8 GM/DL Calcium Level 9.2 MG/DL Alkaline Phosphatase 132 U/L Aspartate Amino Transf (AST/SGOT) 16 U/L Alanine Aminotransferase (ALT/SGPT) 21 U/L Total Bilirubin 0.4 MG/DL Sodium Level 137 MEQ/L Potassium Level 3.6 MEQ/L Chloride Level 102 MEQ/L Carbon Dioxide Level 28.0 MEQ/L Anion Gap 7 MEQ/L Estimat Glomerular Filtration Rate 183 ML/MIN Lipase 63 U/L Lactic Acid Level 1.2 mmol/L Urine Color YELLOW Urine Turbidity CLEAR Urine pH 7.0 Urine Specific [place] LESS/EQUAL 1.005 Urine Protein NEG mg/dL Urine Glucose (UA) NEG mg/dL Urine Ketones NEG mg/dL Urine Occult Blood SMALL Urine Nitrite NEG Urine Bilirubin NEG Urine Urobilinogen 0.2 MG/DL Urine Leukocyte Esterase NEG MDM Medical Decision Making Medical Screen Exam Complete: Yes Emergency Medical Condition: Yes Interpretation(s) Afebrile, hypertensive No leukocytosis Electrolytes are reassuring Lactic acid is normal Urinalysis is negative Last 24 hours Impressions Chest X-Ray 01/07/18 1300 Signed Impressions: CONCLUSION: 1. No acute abnormality or significant interval change. Abdomen/Pelvis CT 01/07/18 0000 Signed Impressions: CONCLUSION: 1. Stable CT examination without acute abnormality to explain patient's abdomi nal dominant pain. 2. Stable 3 mm nodule in the left lung base, likely benign given stability si nce 2014. 3. Stable mild prominence of the common bile duct measuring up to 8 mm. 4. Stable prominent pelvic veins. The findings are nonspecific but may be seen with pelvic congestion syndrome. Differential Diagnosis Aortic aneurysm, cholelithiasis, cholecystitis, choledocholithiasis, gastritis Narrative Course This is a 52-year-old female who presents to the emergency department with abdominal discomfort that started this morning. She is placed in a monitor and an IV was established. She is very uncomfortable on exam so bedside ultrasound was performed which demonstrated a normal aorta and normal gallbladder. Labs are all reassuring. CT abdomen pelvis fails to reveal an etiology of her symptoms. It is suggestive of possible pelvic congestion syndrome but her pain is more epigastric in nature. She has had an endoscopy in the past which is demonstrated some gastritis. Also in review of her notes years ago she had been frequenting the emergency department in the setting of chronic pelvic and abdominal pain so I suspect this may be a manifestation of that. Patient will be discharged home on antacids and was asked to follow-up with her retort kiln burner regarding possible pelvic congestion syndrome. Diagnosis Primary Impression: Gastritis Qualified Codes: K29.00 - Acute gastritis without bleeding Additional Impression: Pelvic congestion syndrome Patient Instructions: General Instructions Additional Instructions: If you develop severe or worsening abdominal pain, fever>100.4, persistent vomiting or inability to eat or drink return to the emergency department immediately. Follow up with your retort kiln burner regarding possible pelvic congestion syndrome seen on your CT scan. You have a 3 mm nodule in your left lung base which is unchanged from your CT scan in 2015. This should be followed by your primary care physician. Med/Other Pt SpecificInfo: Prescription(s) given Scripts Sucralfate Liq (Carafate Liq) 1 Gm/10 Ml Susp 1 GM PO QID for Duodenal ulcer for 10 Days, #1200 ML 0 Refills on empty stomach Prov: Thalia Munoz MD 01/07/18 Pantoprazole (Pantoprazole) 40 Mg Tab 40 MG PO DAILY for Reflux, #30 TAB 0 Refills Prov: Thalia Munoz MD 01/07/18 Disposition: 01 DISCHARGE HOME Condition: Stable Thalia Munoz MD Jan 07, 2018 13:27
[2018-01-07 13:29] LABS: TOTAL BILIRUBIN ADULT 0.4 MG/DL (0.2-1.0); TOTAL PROTEIN 7.9 GM/DL (6.4-8.2)
[2018-01-07 13:30] LABS: ALKALINE PHOSPHATASE 132 U/L (45-117)
[2018-01-07] MEDS ORDERED: IOHEXOL 350 MG/ML 10 ML VIAL (for RAD DIAG) IVCONTRAST ONE (13:46)
--- NOTE | 2018-01-07 14:24 | RADRPT ---
EXAM DATE: 01/07/2018 1:50 PM EDT AGE/SEX: 52 years / Female INDICATIONS: Mid abdominal pain radiating to right flank, and nausea since last night. CLINICAL DATA: This is the patient's initial encounter. Patient reports that signs and symptoms have been present for 2 days and indicates a pain score of 5/10. MEDICAL/SURGICAL HISTORY: Chronic obstructive pulmonary disease. Tubal ligation. Uterine ablati on. ORAL CONTRAST: No oral contrast ingested. RADIATION DOSE: 4.44 CTDI (mGy) COMPARISON: [facility] [place], CT ABDOMEN & PELVIS W CONTRAST, 03/04/2017. . TECHNIQUE: Multiple contiguous axial images were obtained through the abdomen and pelvis following b olus infusion of 75 ml Omnipaque 350 (iohexol) nonionic water-soluble contrast as a single exam dos e. No oral contrast ingested. Using automated exposure control and adjustment of the mA and/or kV ac cording to patient size, radiation dose was kept as low as reasonably achievable to obtain optimal di agnostic quality images. DICOM format image data is available electronically for review and comparis on. FINDINGS: LOWER LUNGS: Stable 3 mm nodule in the left lung base unchanged from 2015 CT exam. LIVER: The liver has a homogeneous density without space-occupying lesion. Slightly prominent but st able common bile duct measuring up to 8 mm. No calcified gallstones. SPLEEN: Homogeneous density without enlargement. PANCREAS: Unremarkable without mass or calcification. KIDNEYS: Kidneys demonstrate symmetrical enhancement and are symmetrical in size without evidence fo r radiopaque renal calculi or hydronephrosis. ADRENAL GLANDS: Unremarkable. AORTA: Na-aneurysmal. No significant aortic dissection. Calcified plaque in the right common iliac artery. BOWEL/MESENTERY: The bowel loops are grossly unremarkable. The cecum and sigmoid colon have a cary l configuration. ABDOMINAL WALL: Intact. RETROPERITONEUM: No evidence of adenopathy in the retrocrural, para-aortic, or deep pelvic regions. BLADDER: Contours are smooth. REPRODUCTIVE: Stable in appearance with prominent pelvic veins bilaterally. BONY STRUCTURES: Unremarkable. CONCLUSION: 1. Stable CT examination without acute abnormality to explain patient's abdominal dominant pain. 2. Stable 3 mm nodule in the left lung base, likely benign given stability since 2015. 3. Stable mild prominence of the common bile duct measuring up to 8 mm. 4. Stable prominent pelvic veins. The findings are nonspecific but may be seen with pelvic congestio n syndrome. Electronically signed by: Praneeth Kurtz MD 01/07/2018 2:23 PM EDT
[2018-01-07] MEDS ORDERED: LIDOCAINE VISCOUS 2% SOLN 15 ML UDC SWISH-SWAL ONE (14:45)
[2018-01-07] MEDS ORDERED: ATROPINE/SCOPOLAM/HYOSCYAM/PB ELIXIR 10 ML CUP PO ONE (14:45)
[2018-01-07] MEDS ORDERED: ALUMINUM/MAGNESIUM/SIMETH 30 ML CUP PO ONE (14:45)
[2018-01-07] MEDS ORDERED: SODIUM CHLOR 0.9% 1000 ML INJ 1,000 ML IV ONE (14:45)
[2018-01-07 14:49] LABS: BILIRUBIN, URINE NEG (NEG); BLOOD, URINE SMALL (NEG); GLUCOSE,URINE NEG (NEG); KETONE, URINE NEG (NEG); NITRITE,URINE NEG (NEG); URINE COLOR YELLOW (YELLW/STRAW); URINE LEUKOCYTE ESTERASE NEG (NEG)
[2018-01-07] MEDS ORDERED: PANT40TA3 PO (14:54)
[2018-01-07] MEDS ORDERED: CARA1SUS3 PO (14:54)
[2018-01-07 15:04] LABS: WBC, URINE 0-2 /hpf (0-5)
[2018-01-07] MEDS ORDERED: ORPHENADRINE INJ 60 MG/2 ML AMP IM ONE (15:15)
[2018-01-07] MEDS ORDERED: KETOROLAC TROMETHAMINE 30 MG/ML (IVP) VIAL IV PUSH ONE (15:15)
[2018-01-10] MEDS ORDERED: REGL10TA5 PO (21:26)
[2018-01-10] MEDS ORDERED: DICY10 PO (22:11)
== END 2018-01-07 16:23 | disposition home or self-care (01) ==
LOC: PHED 12:51
DX: K29.00 Acute gastritis without bleeding (principal); N94.89 Other specified conditions associated with female genital organs and menstrual cycle; F12.90 Cannabis use, unspecified, uncomplicated; G89.29 Other chronic pain; M54.9 Dorsalgia, unspecified; Z72.0 Tobacco use
CPT/HCPCS: 71045; 74177; 80053; 81001; 83605; 83690; 85025; 96361; 96372; 96374; 96375; 96376; 99285; J1885; J2270; J2360; J7030; Q9967